=== PATIENT | male | born 1950 | race Caucasian/White ===

== ENCOUNTER 2024-07-19 17:16 | Observation (INO) ==
[2024-07-19] MEDS: SODIUM CHLORIDE 0.9% 1,000 ML IV ONE (17:35)
[2024-07-19 17:40] LABS: iSTAT Creatinine 3.1 mg/dl (0.6-1.3); iSTAT Hemoglobin 13.6 g/dl (14.0-18.0); iSTAT Ionized Calcium 1.2 mmol/l (1.12-1.32); iSTAT Potassium 4.1 mmol/L (3.3-5.0)
[2024-07-19 17:54] LABS: Basophils # (auto) 0.03 K/uL (0.00-0.20); Basophils % (auto) 0.6 %; Eosinophils # (auto) 0.05 K/uL (0.00-0.50); Eosinophils % (auto) 1.1 %; Hematocrit (blood only) 40.4 % (42.0-52.0); Hemoglobin 13.6 g/dl (14.0-18.0); Immature Granulocytes # (auto) 0.01 K/uL (0.01-0.20); Immature Granulocytes % (auto) 0.2 %; Lymphocytes # (auto) 1.29 K/uL (1.20-3.40); Lymphocytes % (auto) 27.1 %; Mean Corpuscular Hemoglobin 30.5 pg (25.0-34.0); Mean Corpuscular Hgb Conc 33.7 g/dL (32.0-36.0); Mean Corpuscular Volume 90.6 fL (80.0-100.0); Mean Platelet Volume 9.7 fL (9.4-12.4); Monocytes # (auto) 0.51 K/uL (0.11-0.59); Monocytes % (auto) 10.7 %; Neutrophils # (auto) 2.87 K/uL (1.40-6.50); Neutrophils % (auto) 60.3 %; Platelet Count 235 K/uL (130-400); Red Blood Count 4.46 M/uL (4.70-6.10); White Blood Count 4.76 K/ul (4.8-10.8)
[2024-07-19 18:07] LABS: Albumin Level 4.1 gm/dl (3.4-5.0); BUN Creatinine Ratio 24.9 (10-20); Bilirubin Direct 0.1 mg/dl (0-0.2); Bilirubin,Total 0.5 mg/dl (0.2-1.0); Calcium 9.2 mg/dl (8.6-10.3); Creatinine Clr Calc Pharmacy 20.5 ml/min; Est GFR (African American) 23.9 ml/min; Est GFR (Non-African American) 20.6 ml/min; Potassium 4.1 mmol/L (3.5-5.1); Total Protein 6.8 gm/dl (6.0-8.3)
--- NOTE | 2024-07-19 18:08 | XRay Report ---
SINGLE VIEW CHEST CLINICAL HISTORY: Syncope FINDINGS: 2 AP, portable, upright chest radiographs are obtained. No prior studies are available for comparison at the time of dictation. Cardiac pads are in place. The heart is enlarged noting atherosc lerotic calcification of the thoracic aorta. The pulmonary vasculature is noncongested. There is mild bibasilar scarring/atelectasis. The lungs and pleural spaces are otherwise clear. No pneumothorax is seen. The skeletal structures are osteopenic. The bony thorax is grossly intact. IMPRESSION: Cardiomegaly with no acute cardiopulmonary abnormality identified. ACT 112: Negative or not required by law. Electronically signed by: Steve Sanders M.D. 07/19/2024 6:06 PM
--- NOTE | 2024-07-19 18:13 | Emergency Department Note ---
Impression & Plan Chest pain, Syncope, Syncope, cardiogenic ED Provider Note NAME: LUCY COLIN AGE: 74 SEX: M : 1950 ARRIVES VIA: Ambulance INFORMANT: Patient, ED PROVIDER(S): Demetris Garza MD CHIEF COMPLAINT: Syncope HPI: This is a 74-year-old male presenting for syncope. Patient states that he was with his family when he was feeling dizzy. He notes he was shuffling [id number] and then felt he was in a pass out. He was caught before he actually hit the ground. He was unresponsive, pale and herbert/diaphoretic as per EMS. He did vomit twice prior to arrival. He was given 324 aspirin as per EMS. Given 4 mg of Zofran as well. Patient history of hypertension, type 2 diabetes and CKD, currently is a fistula but not receiving dialysis yet. He notes no current chest pain. No current lightheadedness sensation. No shortness of breath. Was never happened before. He was out in the heat all day. ROS: See above HPI for pertinent positives & negatives. A total of 10 systems reviewed and were otherwise negative. PAST MEDICAL HISTORY: See Below PAST SURGICAL HISTORY: See Below FAMILY HISTORY: See Below SOCIAL HISTORY: See Below HOME MEDICATIONS: See Below ALLERGIES: See Below VITALS: See Below PHYSICAL EXAMINATION: General: resting comfortably in no acute distress Head: Normocephalic and atraumatic Eyes: Normal inspection, extraocular muscles intact Ear, nose, throat: Normal external exam Neck: Normal range of motion Respiratory: lungs clear to auscultation bilaterally Cardiovascular: Regular rate/rhythm, no murmur GI: soft, nontender, no guarding or rebound Extremities: nontender, moves all extremities Neuro: The patient awake and alert, appropriately conversive, no focal deficits, symmetric faces Skin: Warm, dry, and intact MEDICAL DECISION MAKING: This is a 74-year-old male presenting for syncope. Patient's EKG is fairly concerning for ischemia. -ECG independently interpreted by me with sinus rhythm with first-degree AV block, rate of 75, normal IN, normal QRS, normal QTc, diffuse T wave inversions in the lateral leads, sub-1 mm elevations in the inferior leads, 2 3 and aVF, not consistent with STEMI criteria -Due to patient's syncope and now concerning EKG, discussed with interventional cardiology, Dr. Castañeda. He was sent a copy of this EKG. States it is borderline EKG and require admission. reassured by the fact there is no current chest pain. -Will place patient on pads due to his current syncope and concern EKG. -He is not hypoxic, tachycardic or tachypneic this time. Lower concern for PE. -Patient will require admission at this time for his EKG is concerning for ischemia, cardiogenic syncope syncope Differential diagnosis: Cardiac syncope, STEMI, dehydration, vasovagal syncope ER treatment provided: See below Independent History obtained from: Granddaughter Diagnostics interpreted by me: ECG: See above Cardiac Monitoring: An order was placed for continuous cardiac monitoring. The monitor shows a rate of 83 with sinus rhythm. Laboratory studies: As stated above and show below. Imaging studies: See below. Past Med/Surg History Problem List (Updated 07/19/24 @ 22:21 by Demetris Garza MD) Syncope, cardiogenic (Acute) Syncope (Acute) Chest pain (Acute) Social History Smoking Status: Former smoker Preferred Language: Ukrainian Feels Safe at Home: Yes Allergies Allergies Allergy/AdvReac Type Severity Reaction Status Date / Time No Known Allergies Allergy Unverified 07/19/24 19:36 Home Meds Home Medications Medication Instructions Recorded Confirmed amlodipine 5 mg tablet 5 mg PO DAILY 07/19/24 07/19/24 ascorbic acid (vitamin C) 500 mg 500 mg PO DAILY 07/19/24 07/19/24 tablet (Vitamin C) aspirin 81 mg tablet,delayed 81 mg PO DAILY 07/19/24 07/19/24 release carvedilol 3.125 mg tablet 3.125 mg PO BID 07/19/24 07/19/24 cholecalciferol (vitamin D3) 50 50 mcg PO DAILY 07/19/24 07/19/24 mcg (2,000 unit) capsule (Vitamin D3) empagliflozin 25 mg tablet 25 mg PO DAILY 07/19/24 07/19/24 (Jardiance) fenofibrate micronized 67 mg 67 mg PO DAILY 07/19/24 07/19/24 capsule finerenone 10 mg tablet (Kerendia) 10 mg PO DAILY 07/19/24 07/19/24 losartan 50 mg tablet 50 mg PO BID 07/19/24 07/19/24 magnesium oxide 400 mg (241.3 mg 400 mg PO DAILY 07/19/24 07/19/24 magnesium) tablet pentoxifylline 400 mg 400 mg PO BID 07/19/24 07/19/24 tablet,extended release pitavastatin calcium 1 mg tablet 1 mg PO DAILY 07/19/24 07/19/24 pitavastatin calcium 1 mg tablet 1 mg PO DAILY 07/19/24 07/19/24 (Livalo) semaglutide 1 mg/dose (4 mg/3 mL) 1 mg subcut WK 07/19/24 07/19/24 subcutaneous pen injector (Ozempic) Results & Data (ED) Vital Signs Vital Signs - 24 hr 07/19/24 17:03 07/19/24 17:43 07/19/24 17:48 Temperature 36.4 C L Temperature Source Temporal Artery Scan Pulse Rate - Lying Pulse Rate - Sitting Pulse Rate - Standing Pulse Rate 73 74 Pulse Rate [Left Apical] 74 Pulse Rate from SpO2 Sensor Respiratory Rate 14 19 Respiratory Effort / Characteristics Non-Labored Spontaneous Non-Labored Spontaneous Respiratory Depth Normal Normal Respiratory Pattern Regular Regular Blood Pressure - Lying Blood Pressure - Sitting Blood Pressure- Standing Blood Pressure 136/72 Blood Pressure [Left Arm] 120/66 Blood Pressure Mean 93 Blood Pressure Mean [Left Arm] 84 Pulse Oximetry 99 96 Oxygen Delivery Method Room Air Room Air Sepsis Recent Fever Within 48 Hours No Sepsis New/Unexplained Change in Mental Status N/A Sepsis Action Taken by Nursing No Action Required 07/19/24 17:54 07/19/24 17:56 07/19/24 18:00 Temperature Temperature Source Pulse Rate - Lying Pulse Rate - Sitting Pulse Rate - Standing Pulse Rate 75 Pulse Rate [Left Apical] Pulse Rate from SpO2 Sensor Respiratory Rate 16 Respiratory Effort / Characteristics Respiratory Depth Respiratory Pattern Blood Pressure - Lying Blood Pressure - Sitting Blood Pressure- Standing Blood Pressure 120/64 Blood Pressure [Left Arm] 122/70 Blood Pressure Mean 88 Blood Pressure Mean [Left Arm] 87 Pulse Oximetry 97 Oxygen Delivery Method Room Air Sepsis Recent Fever Within 48 Hours Sepsis New/Unexplained Change in Mental Status Sepsis Action Taken by Nursing 07/19/24 18:03 07/19/24 19:00 07/19/24 20:00 Temperature Temperature Source Pulse Rate - Lying Pulse Rate - Sitting Pulse Rate - Standing Pulse Rate 74 74 81 Pulse Rate [Left Apical] Pulse Rate from SpO2 Sensor 74 82 Respiratory Rate 23 17 18 Respiratory Effort / Characteristics Respiratory Depth Respiratory Pattern Blood Pressure - Lying Blood Pressure - Sitting Blood Pressure- Standing Blood Pressure 117/64 150/87 H Blood Pressure [Left Arm] Blood Pressure Mean 81 108 Blood Pressure Mean [Left Arm] Pulse Oximetry 97 95 99 Oxygen Delivery Method Room Air Room Air Room Air Sepsis Recent Fever Within 48 Hours Sepsis New/Unexplained Change in Mental Status Sepsis Action Taken by Nursing 07/19/24 20:30 07/19/24 20:36 07/19/24 21:24 Temperature Temperature Source Pulse Rate - Lying Pulse Rate - Sitting Pulse Rate - Standing Pulse Rate 83 83 Pulse Rate [Left Apical] Pulse Rate from SpO2 Sensor 83 Respiratory Rate 21 Respiratory Effort / Characteristics Respiratory Depth Respiratory Pattern Blood Pressure - Lying Blood Pressure - Sitting Blood Pressure- Standing Blood Pressure 152/91 H Blood Pressure [Left Arm] Blood Pressure Mean 104 Blood Pressure Mean [Left Arm] Pulse Oximetry 99 Oxygen Delivery Method Room Air Sepsis Recent Fever Within 48 Hours Sepsis New/Unexplained Change in Mental Status Sepsis Action Taken by Nursing 07/19/24 21:30 Temperature Temperature Source Pulse Rate - Lying 82 Pulse Rate - Sitting 88 Pulse Rate - Standing 92 H Pulse Rate Pulse Rate [Left Apical] Pulse Rate from SpO2 Sensor Respiratory Rate Respiratory Effort / Characteristics Respiratory Depth Respiratory Pattern Blood Pressure - Lying 147/84 H Blood Pressure - Sitting 140/84 Blood Pressure- Standing 138/87 Blood Pressure Blood Pressure [Left Arm] Blood Pressure Mean Blood Pressure Mean [Left Arm] Pulse Oximetry Oxygen Delivery Method Sepsis Recent Fever Within 48 Hours Sepsis New/Unexplained Change in Mental Status Sepsis Action Taken by Nursing Laboratory Data 07/19/24 17:22 07/19/24 17:22 Lab Results 07/19/24 07/19/24 Range/Units 17:22 17:27 WBC 4.76 L (4.8-10.8) K/ul RBC 4.46 L (4.70-6.10) M/uL Hgb 13.6 L (14.0-18.0) g/dl POC Hgb 13.6 L (14.0-18.0) g/dl Hct 40.4 L (42.0-52.0) % POC Hct 40 L (42-52) % MCV 90.6 (80.0-100.0) fL MCH 30.5 (25.0-34.0) pg MCHC 33.7 (32.0-36.0) g/dL RDW Std Deviation 43.0 (36.4-46.3) fL RDW Coeff of Salvatore 13.0 (11.5-14.5) % Plt Count 235 (130-400) K/uL MPV 9.7 (9.4-12.4) fL Immature Gran % (Auto) 0.2 % Neut % (Auto) 60.3 % Lymph % (Auto) 27.1 % [place] % (Auto) 10.7 % Eos % (Auto) 1.1 % Baso % (Auto) 0.6 % Reticulocyte % (Auto) 1.29 (0.50-2.00) % Neut # (Auto) 2.87 (1.40-6.50) K/uL Lymph # (Auto) 1.29 (1.20-3.40) K/uL [place] # (Auto) 0.51 (0.11-0.59) K/uL Eos # (Auto) 0.05 (0.00-0.50) K/uL Baso # (Auto) 0.03 (0.00-0.20) K/uL Reticulocyte # 0.060 (0.020-0.100) 10^6/uL Immature Gran # (Auto) 0.01 (0.01-0.20) K/uL POC Sodium 143 (135-144) mmol/L Sodium 140 (136-145) mmol/L POC Potassium 4.1 (3.3-5.0) mmol/L Potassium 4.1 (3.5-5.1) mmol/L POC Chloride 109 (101-112) mmol/L Chloride 109 H (98-107) mmol/L Carbon Dioxide 23 (21-32) mmol/L POC Total CO2 22 L (24-31) mmol/L Anion Gap 8 (3-11) POC Anion Gap 17.0 (16-25) mmol/L POC BUN 56 H (7-18) mg/dl BUN 72 H (6-23) mg/dl Creatinine 2.89 H (0.6-1.4) mg/dl POC Creatinine 3.1 H (0.6-1.3) mg/dl Est Cr Clr Drug Dosing 20.5 ml/min Est GFR ( Amer) 23.9 ml/min Est GFR (Non-Af Amer) 20.6 ml/min BUN/Creatinine Ratio 24.9 H (10-20) Glucose 134 H (70-99(Fasting)) mg/dl POC Glucose (other) 130 H (70-99) mg/dl Estimat Average Glucose 128 mg/dl Hemoglobin A1c 6.1 H (4.5-5.6) % Calcium 9.2 (8.6-10.3) mg/dl POC Ioniz Calcium [place] 1.20 (1.12-1.32) mmol/l Total Bilirubin 0.5 (0.2-1.0) mg/dl Direct Bilirubin 0.1 (0-0.2) mg/dl AST 15 (13-39) U/L ALT 12 (7-52) U/L Alkaline Phosphatase 23 L (34-104) U/L Total Creatine Kinase 66 (30-223) U/L Troponin I High Sens 10.9 (0-20) pg/ml Total Protein 6.8 (6.0-8.3) gm/dl Albumin 4.1 (3.4-5.0) gm/dl Lipase 54 (11-82) U/L TSH 2.984 (0.300-4.500) uIu/ml Administered Medications Lactated Ringer's (Lr) 1,000 mls @ 100 mls/hr IV .Q10H ONE Stop: 07/20/24 05:36 Last Admin: 07/19/24 20:48 Dose: 100 mls/hr Documented By: ORI Discontinued Medications Sodium Chloride (Nss) 1,000 mls @ 999 mls/hr IV .Q1H1M ONE Stop: 07/19/24 18:27 Last Infusion: 07/19/24 18:38 Dose: Infused Documented By: [facility] Admin: 07/19/24 17:35 Dose: 999 mls/hr Documented By: [facility] Imaging Data Radiologist's Impression: Chest X-Ray 07/19/24 17:52 SINGLE VIEW CHEST CLINICAL HISTORY: Syncope FINDINGS: 2 AP, portable, upright chest radiographs are obtained. No prior studies are available for comparison at the time of dictation. Cardiac pads are in place. The heart is enlarged noting atherosclerotic calcification of the thoracic aorta. The pulmonary vasculature is noncongested. There is mild bibasilar scarring/atelectasis. The lungs and pleural spaces are otherwise clear. No pneumothorax is seen. The skeletal structures are osteopenic. The bony thorax is grossly intact. IMPRESSION: Cardiomegaly with no acute cardiopulmonary abnormality identified. ACT 112: Negative or not required by law. Electronically signed by: Steve Sanders M.D. 07/19/2024 6:[address] 07/19/24 20:16 Exam(s): CT HEAD Without Contrast EXAM: CT Head Without Intravenous Contrast CLINICAL HISTORY: Reason for exam: head trauma. TECHNIQUE: Axial computed tomography images of the head/brain without intravenous contrast. CTDI is 37.58 mGy and DLP is 547.75 mGy-cm. Automated exposure control was utilized for the study. A dose lowering technique was utilized adhering to the principles of ALARA. COMPARISON: No relevant prior studies available. FINDINGS: Brain: No hemorrhage, extra-axial fluid collection, mass effect, or edema. Ventricles: Unremarkable. Bones/joints: Unremarkable. No fracture. Soft tissues: Posterior scalp contusion. Sinuses: No acute sinusitis. Mastoid air cells: Unremarkable as visualized. IMPRESSION: 1. No acute intracranial abnormality. Electronically signed by: Lauro Molina MD 07/19/24 20:56 PM Discharge Plan Visit Data Chief Complaint: Cardiac Assessment ED Provider: Demetris Garza Discharge Problem: Chest pain, Syncope, Syncope, cardiogenic Forms Stand Alone Forms: My [facility] [employer] Prescriptions Prescriptions: No Action amlodipine 5 mg tablet 5 mg PO DAILY aspirin [Aspir-81] 81 mg Tablet,Delayed Release (Dr/Ec) 81 mg PO DAILY pentoxifylline 400 mg tablet extended release 400 mg PO BID magnesium oxide 400 mg (241.3 mg magnesium) tablet 400 mg PO DAILY ascorbic acid (vitamin C) [Vitamin C] 500 mg Tablet 500 mg PO DAILY cholecalciferol (vitamin D3) [Vitamin D3] 50 mcg (2,000 unit) Capsule 50 mcg PO DAILY pitavastatin calcium 1 mg tablet 1 mg PO DAILY Jardiance 25 mg tablet 25 mg PO DAILY Ozempic 1 mg/dose (4 mg/3 mL) pen injector 1 mg SUBCUT WK Kerendia 10 mg tablet 10 mg PO DAILY losartan 50 mg Tablet 50 mg PO BID fenofibrate micronized 67 mg capsule 67 mg PO DAILY carvedilol 3.125 mg tablet 3.125 mg PO BID pitavastatin calcium [Livalo] 1 mg tablet 1 mg PO DAILY Referrals Referrals: Nichole Renner PA-C [Primary Care Provider] -
[2024-07-19 18:14] LABS: Troponin I High Sensitivity 10.9 pg/ml (0-20)
[2024-07-19 20:13] LABS: Thyroid Stimulating Hormone 2.984 uIu/ml (0.300-4.500)
[2024-07-19] MEDS: LACTATED RINGER'S 1,000 ML IV ONE (20:48)
--- NOTE | 2024-07-19 20:57 | CT Scan Report ---
Exam(s): CT HEAD Without Contrast EXAM: CT Head Without Intravenous Contrast CLINICAL HISTORY: Reason for exam: head trauma. TECHNIQUE: Axial computed tomography images of the head/brain without intravenous contrast. CTDI is 37.58 mGy and DLP is 547.75 mGy-cm. Automated exposure control was utilized for the study. A dose lowering technique was utilized adhering to the principles of ALARA. COMPARISON: No relevant prior studies available. FINDINGS: Brain: No hemorrhage, extra-axial fluid collection, mass effect, or edema. Ventricles: Unremarkable. Bones/joints: Unremarkable. No fracture. Soft tissues: Posterior scalp contusion. Sinuses: No acute sinusitis. Mastoid air cells: Unremarkable as visualized. IMPRESSION: 1. No acute intracranial abnormality. Electronically signed by: Lauro Molina MD 07/19/24 20:56 PM
--- NOTE | 2024-07-19 21:07 | History & Physical Report ---
Date of Service July 19, 2024 Assessment & Plan (1) Syncope: Plan: Possible orthostasis given borderline BP documented by EMS. hx abnormal EKG (ST elevation on EKG done at the ER) Patient and family aware of patient having abnormal EKGs in the past. Patient without chest pain or SOB complaints. Anemia, unknown duration, possibly from traumatic head/facial bruising, patient family unaware of previous issues history of CKD, history AV fistula creation 2 months ago, unknown baseline hyperlipidemia on statin Rx hx PVD DM2 on oral medications, hemoglobin A1c of 6.1 today past tobacco abuse OBS PCU given abnormal EKG TTE, Cardiology consult as per supervisory civil engineer (Dr. Castañeda) recommendations to ED for evaluation of abnormal EKG Baseline UA, monitor creatinine response to IVF, hold losartan for now until baseline established Anemia workup Hold antiplatelet Rx given bruising and anemia until baseline established. ISS BG goal 1 10-1 40, carb count coverage DVT prophylaxis. TEDS RE facial bruising/ecchymosis (SCDs contraindicated with history PAD) Full code Patient daughter requesting updates providers. Ms. Lynette Barton, contact #[phone]. Text document was generated using [employer] voice recognition software. It may contain grammatical or spelling errors. Kindly contact undersigned for clarification of any documentation item in question. History of Present Illness Chief Complaint: Passed out Primary Care Provider: Nichole Renner History obtained from patient, family, and records. Medical history significant for hypertension, hyperlipidemia, PVD, DM2 on oral medications, CRI (unknown baseline), abnormal EKG as per family, past tobacco abuse. Patient with 2 episodes of head trauma this month. Would bump his head from being inattentive as per patient. No chest pain, no SOB, no LOC. Patient started not feeling well after lunch at an outdoor picnic this afternoon. Patient attributed symptoms to outdoor heat and eating a lot for lunch. Patient did not look well as per family. Look like he was going to throw up as per family. Patient denies headache, chest pain, SOB, abdominal pain. Witnessed syncopal event lasting about 3 minutes as per family. No witnessed seizures. SBP 100s upon EMS arrival. Emesis in the ambulance en route to the hospital. Patient currently back to baseline as per family. Medical History as above Surgical History : Right eye trauma surgery, AV fistula creation Family History : Heart disease, DM Personal/Social history : Past tobacco abuse, occasional EtOH intake, retired mechanical engineering intern Allergies Allergy/AdvReac Type Severity Reaction Status Date / Time No Known Allergies Allergy Unverified 07/19/24 19:36 Home Medications Medication Instructions Recorded Confirmed Type amlodipine 5 mg tablet 5 mg PO DAILY 07/19/24 07/19/24 History ascorbic acid (vitamin C) 500 mg 500 mg PO DAILY 07/19/24 07/19/24 History tablet (Vitamin C) aspirin 81 mg tablet,delayed 81 mg PO DAILY 07/19/24 07/19/24 History release carvedilol 3.125 mg tablet 3.125 mg PO BID 07/19/24 07/19/24 History cholecalciferol (vitamin D3) 50 50 mcg PO DAILY 07/19/24 07/19/24 History mcg (2,000 unit) capsule (Vitamin D3) empagliflozin 25 mg tablet 25 mg PO DAILY 07/19/24 07/19/24 History (Jardiance) fenofibrate micronized 67 mg 67 mg PO DAILY 07/19/24 07/19/24 History capsule finerenone 10 mg tablet (Kerendia) 10 mg PO DAILY 07/19/24 07/19/24 History losartan 50 mg tablet 50 mg PO BID 07/19/24 07/19/24 History magnesium oxide 400 mg (241.3 mg 400 mg PO DAILY 07/19/24 07/19/24 History magnesium) tablet pentoxifylline 400 mg 400 mg PO BID 07/19/24 07/19/24 History tablet,extended release pitavastatin calcium 1 mg tablet 1 mg PO DAILY 07/19/24 07/19/24 History pitavastatin calcium 1 mg tablet 1 mg PO DAILY 07/19/24 07/19/24 History (Livalo) semaglutide 1 mg/dose (4 mg/3 mL) 1 mg subcut WK 07/19/24 07/19/24 History subcutaneous pen injector (Ozempic) Past Med/Surg History Problem List (Updated 07/19/24 @ 22:21 by Demetris Garza MD) Syncope, cardiogenic (Acute) Syncope (Acute) Chest pain (Acute) Social History Smoking Status: Former smoker Preferred Language: Divehi Feels Safe at Home: Yes Review of Systems Review of Systems: As per HPI, all other systems reviewed and negative Physical Exam Physical Exam: GENERAL: Comfortable, pleasant, no respiratory distress SKIN: Pallor, warm HEENT: Faint bruising over her cheeks and forehead, pale, palpebral conjunctivae, no ptosis, dry buccal mucosa NECK : Supple, no tenderness CHEST : CTA, no tenderness HEART : RRR, no obvious murmurs ABDOMEN: Some distention, nontender EXTREMITIES : No LE swelling/tenderness, no other conspicuous deformities noted NEUROLOGIC : Coherent, no facial asymmetry, no other gross focality Results & Data Results & Data Vital Signs (Past 12 Hours) Vital Signs Temp Pulse Pulse Resp BP BP Pulse Ox 07/19/24 19:00 74 17 117/64 95 07/19/24 18:03 74 23 97 07/19/24 18:00 120/64 07/19/24 17:56 122/70 07/19/24 17:54 75 16 97 07/19/24 17:48 74 07/19/24 17:43 74 19 120/66 96 07/19/24 17:03 36.4 C L 73 14 136/72 99 O2 Del Method 07/19/24 19:00 Room Air 07/19/24 18:03 Room Air 07/19/24 18:00 07/19/24 17:56 07/19/24 17:54 Room Air 07/19/24 17:48 07/19/24 17:43 Room Air 07/19/24 17:03 Room Air Laboratory Results Laboratory Results WBC 4.76 K/ul (4.8-10.8) L 07/19/24 17:22 RBC 4.46 M/uL (4.70-6.10) L 07/19/24 17:22 Hgb 13.6 g/dl (14.0-18.0) L 07/19/24 17:22 POC Hgb 13.6 g/dl (14.0-18.0) L 07/19/24 17:27 Hct 40.4 % (42.0-52.0) L 07/19/24 17:22 POC Hct 40 % (42-52) L 07/19/24 17:27 MCV 90.6 fL (80.0-100.0) 07/19/24 17:22 MCH 30.5 pg (25.0-34.0) 07/19/24 17:22 MCHC 33.7 g/dL (32.0-36.0) 07/19/24 17:22 RDW Std Deviation 43.0 fL (36.4-46.3) 07/19/24 17: RDW Coeff of Salvatore 13.0 % (11.5-14.5) 07/19/24 17:22 Plt Count 235 K/uL (130-400) 07/19/24 17:22 MPV 9.7 fL (9.4-12.4) 07/19/24 17:22 Immature Gran % (Auto) 0.2 % 07/19/24 17:22 Neut % (Auto) 60.3 % 07/19/24 17:22 Lymph % (Auto) 27.1 % 07/19/24 17:22 [place] % (Auto) 10.7 % 07/19/24 17:22 Eos % (Auto) 1.1 % 07/19/24 17:22 Baso % (Auto) 0.6 % 07/19/24 17:22 Neut # (Auto) 2.87 K/uL (1.40-6.50) 07/19/24 17:22 Lymph # (Auto) 1.29 K/uL (1.20-3.40) 07/19/24 17:22 Oldham # (Auto) 0.51 K/uL (0.11-0.59) 07/19/24 17:22 Eos # (Auto) 0.05 K/uL (0.00-0.50) 07/19/24 17:22 Baso # (Auto) 0.03 K/uL (0.00-0.20) 07/19/24 17:22 Immature Gran # (Auto) 0.01 K/uL (0.01-0.20) 07/19/24 17:22 POC Sodium 143 mmol/L (135-144) 07/19/24 17:27 Sodium 140 mmol/L (136-145) 07/19/24 17:22 POC Potassium 4.1 mmol/L (3.3-5.0) 07/19/24 17:27 Potassium 4.1 mmol/L (3.5-5.1) 07/19/24 17:22 POC Chloride 109 mmol/L (101-112) 07/19/24 17:27 Chloride 109 mmol/L (98-107) H 07/19/24 17:22 Carbon Dioxide 23 mmol/L (21-32) 07/19/24 17:22 POC Total CO2 22 mmol/L (24-31) L 07/19/24 17:27 Anion Gap 8 (3-11) 07/19/24 17:22 POC Anion Gap 17.0 mmol/L (16-25) 07/19/24 17:27 POC BUN 56 mg/dl (7-18) H 07/19/24 17:27 BUN 72 mg/dl (6-23) H 07/19/24 17:22 Creatinine 2.89 mg/dl (0.6-1.4) H 07/19/24 17:22 POC Creatinine 3.1 mg/dl (0.6-1.3) H 07/19/24 17:27 Est Cr Clr Drug Dosing 20.5 ml/min 07/19/24 17:22 Est GFR ( Amer) 23.9 ml/min 07/19/24 17:22 Est GFR (Non-Af Amer) 20.6 ml/min 07/19/24 17:22 BUN/Creatinine Ratio 24.9 (10-20) H 07/19/24 17:22 Glucose 134 mg/dl (70-99(Fasting)) H 07/19/24 17:22 POC Glucose (other) 130 mg/dl (70-99) H 07/19/24 17:27 Calcium 9.2 mg/dl (8.6-10.3) 07/19/24 17:22 POC Ioniz Calcium Tatum 1.20 mmol/l (1.12-1.32) 07/19/24 17:27 Total Bilirubin 0.5 mg/dl (0.2-1.0) 07/19/24 17:22 Direct Bilirubin 0.1 mg/dl (0-0.2) 07/19/24 17:22 AST 15 U/L (13-39) 07/19/24 17:22 ALT 12 U/L (7-52) 07/19/24 17:22 Alkaline Phosphatase 23 U/L (34-104) L 07/19/24 17:22 Total Creatine Kinase 66 U/L (30-223) 07/19/24 17:22 Troponin I High Sens 10.9 pg/ml (0-20) 07/19/24 17:22 Total Protein 6.8 gm/dl (6.0-8.3) 07/19/24 17:22 Albumin 4.1 gm/dl (3.4-5.0) 07/19/24 17:22 Lipase 54 U/L (11-82) 07/19/24 17:22 TSH 2.984 uIu/ml (0.300-4.500) 07/19/24 17:22 Impressions Chest X-Ray 07/19/24 17:52 SINGLE VIEW CHEST CLINICAL HISTORY: Syncope FINDINGS: 2 AP, portable, upright chest radiographs are obtained. No prior studies are available for comparison at the time of dictation. Cardiac pads are in place. The heart is enlarged noting atherosclerotic calcification of the thoracic aorta. The pulmonary vasculature is noncongested. There is mild bibasilar scarring/atelectasis. The lungs and pleural spaces are otherwise clear. No pneumothorax is seen. The skeletal structures are osteopenic. The bony thorax is grossly intact. IMPRESSION: Cardiomegaly with no acute cardiopulmonary abnormality identified. ACT 112: Negative or not required by law. Electronically signed by: Steve Sanders M.D. 07/19/2024 6:[address] 07/19/24 20:16 Exam(s): CT HEAD Without Contrast EXAM: CT Head Without Intravenous Contrast CLINICAL HISTORY: Reason for exam: head trauma. TECHNIQUE: Axial computed tomography images of the head/brain without intravenous contrast. CTDI is 37.58 mGy and DLP is 547.75 mGy-cm. Automated exposure control was utilized for the study. A dose lowering technique was utilized adhering to the principles of ALARA. COMPARISON: No relevant prior studies available. FINDINGS: Brain: No hemorrhage, extra-axial fluid collection, mass effect, or edema. Ventricles: Unremarkable. Bones/joints: Unremarkable. No fracture. Soft tissues: Posterior scalp contusion. Sinuses: No acute sinusitis. Mastoid air cells: Unremarkable as visualized. IMPRESSION: 1. No acute intracranial abnormality. Electronically signed by: Lauro Molina MD 07/19/24 20:56 PM Diagnostic Findings EKG as per my interpretation : Rate 75, NSR, normal axis, 1 AVB, subtle ST elevation inferior leads, deep T wave inversions anterolateral leads
[2024-07-19] MEDS ORDERED: ACETAMINOPHEN 325 MG TAB PO PRN (21:10)
[2024-07-19] MEDS ORDERED: PROMETHAZINE 6.25 MG/50.25 ML BAG IV PRN (21:12)
[2024-07-19 21:44] LABS: Estimated Average Glucose 128 mg/dl; Hemoglobin A1C 6.1 % (4.5-5.6)
[2024-07-19 21:58] LABS: Reticulocyte % 1.29 % (0.50-2.00); Reticulocytes # 0.06 10^6/uL (0.020-0.100)
[2024-07-19 22:34] LABS: Folate (Folic Acid),Ser orPlas 10.2 ng/ml (>5.38)
[2024-07-19] MEDS: carvediloL 3.125 MG TAB PO STA (22:43)
[2024-07-19 23:22] LABS: Calcium 9.3 mg/dl (8.6-10.3); Creatinine Clr Calc Pharmacy 21.6 ml/min; Est GFR (African American) 25.4 ml/min; Est GFR (Non-African American) 21.9 ml/min; Potassium 4.4 mmol/L (3.5-5.1)
[2024-07-19] MEDS ORDERED: GLUCOSE 40% GEL 15 GM TUBE PO PRN (23:22)
[2024-07-19] MEDS ORDERED: DEXTROSE 50% 50 ML SYRINGE IV PRN (23:22)
[2024-07-19] MEDS ORDERED: GLUCAGON FOR INJ 1 MG VIAL SQ PRN (23:22)
[2024-07-19] MEDS ORDERED: GLUCOSE 10 TAB/TUBE PO PRN (23:22)
[2024-07-19] MEDS ORDERED: CARBOHYDRATES FOR HYPOGLYCEMIA PO PRN (23:22)
[2024-07-19 23:43] LABS: Ferritin 84.5 ng/ml (8-388)
[2024-07-20] MEDS: INSULIN ASPART PER UNIT CHARGE SC SCH (00:40)
[2024-07-20 02:01] LABS: Appearance Urine Clear (Clear); Bilirubin Urine Negative (Negative); Blood Urine Negative (Negative); Color Urine Yellow; Glucose Urine UA 3+ (Negative); Ketones Urine Negative (Negative); Leukocyte Esterase Urine Negative (Negative); Nitrite Urine Negative (Negative); Protein Urine Negative (Negative); Specific Gravity Urine 1.019 (1.000-1.030); Urobilinogen Urine Negative (Negative); pH Urine 5.5 (4.5-7.5)
[2024-07-20 04:54] LABS: Basophils # (auto) 0.02 K/uL (0.00-0.20); Basophils % (auto) 0.3 %; Eosinophils # (auto) 0.03 K/uL (0.00-0.50); Eosinophils % (auto) 0.5 %; Hemoglobin 12.6 g/dl (14.0-18.0); Immature Granulocytes # (auto) 0.01 K/uL (0.01-0.20); Immature Granulocytes % (auto) 0.2 %; Lymphocytes % (auto) 22.1 %; Mean Corpuscular Hemoglobin 30.4 pg (25.0-34.0); Mean Corpuscular Hgb Conc 33.2 g/dL (32.0-36.0); Mean Corpuscular Volume 91.8 fL (80.0-100.0); Mean Platelet Volume 9.5 fL (9.4-12.4); Monocytes # (auto) 0.57 K/uL (0.11-0.59); Monocytes % (auto) 9.7 %; Neutrophils # (auto) 3.94 K/uL (1.40-6.50); Neutrophils % (auto) 67.2 %; Platelet Count 221 K/uL (130-400); RDW Coefficient of Variation 13.1 % (11.5-14.5); RDW Standard Deviation 44.2 fL (36.4-46.3); Red Blood Count 4.14 M/uL (4.70-6.10); White Blood Count 5.87 K/ul (4.8-10.8)
[2024-07-20 05:06] LABS: BUN Creatinine Ratio 22.7 (10-20); Calcium 8.4 mg/dl (8.6-10.3); Creatinine Clr Calc Pharmacy 22.5 ml/min; Est GFR (African American) 26.6 ml/min; Potassium 3.9 mmol/L (3.5-5.1)
--- NOTE | 2024-07-20 08:56 | Cardiology Consultation ---
Date of Consultation July 20, 2024 Assessment & Plan (1) Syncope: (2) Abnormal EKG: Plan Assessment: 74 year old male presents with one time syncopal episode. No prior cardiac history. EKG with significant abnormality with no prior study for review. Plan: Syncope: -Possible vasovagal syncope in the setting of dehydration and known CKD. No post-ictal symptoms and no reports of any chest pain, pressure or palpitations. -patient remains asymptomatic and endorses living a active life, does a lot of manual labor. -Troponin negative x2 -EKG abnormal with ST elevation in inferior leads, not stemi criteria. -BP high end of target, known CKD. Continue current medication dosing of amlodipine 5mg PO QD and Coreg 3.125mg PO BID -Continue to monitor on telemetry for any arrhythmia or ectopy -NPO after midnight with plans to proceed with Stress echocardiogram in the AM. Case has been discussed with Dr. Slulivan. Further recommendations regarding plan of care as per his assessment. I spent a total of 40 minutes on the date of service in preparation, delivery, documentation of the care provided to the patient excluding any time spent in the performance of separately billed services. TALAT Patton [facility] Cardiology [facility] Supervising Physician Co-Signing Physician Notes I have personally performed a history and physical examination on the patient. I have reviewed the advance practitioner's documentation, and I agree with, and take responsibility for the plan of care. 74-year-old male admitted with syncopal episode, possibly vasovagal, related to excessive heat exposure and volume depletion. ECG with changes concerning for underlying ischemic heart disease. No prior ECG for comparison. No dysrhythmias on telemetry. Resting echocardiogram with normal LV function and wall motion. High-sensitivity troponin unremarkable. Findings discussed with patient and family members. Recommend exercise stress echo for further evaluation of abnormal ECG. Patient agreeable. Stress testing will be performed in the a.m. 07/21/2024. Continue telemetry monitoring while hospitalized. I spent a total of 35 minutes on the date of service in preparation, delivery, and documentation of the care provided to this patient, excluding any time spent in the performance of separately billed services. Reno Sullivan DO, [facility] History of Present Illness Reason for Consultation: Syncope, Abnormal EKG Requesting Physician: [facility] hospitalist Attending Physician: Dina Noble MD History of Present Illness HPI: Patient is a 74 year old male with PMHx significant for hypertension, hyperlipidemia, PVD, DM2 on oral medications, CRI (unknown baseline), abnormal EKG as per family, past tobacco abuse. He presented to the ED after a witnessed syncopal episodes that occurred yesterday while attending a picnic. Patient states that he was feeling his usual state of health, but after eating became dizzy, lightheaded, appeared pale, and felt as though he might vomit. He was noted to begin to shuffle his gait and proceeded to synopsize; however, was caught by a family member prior to hitting the ground. Sustained to trauma. Family had reported that the event lasted approximately 3 minutes. He had no post-ictal confusion, and there was no witnessed seizure activity. EMS reported low systolic BP of 100mmHg upon arrival and patient did vomit in the ambulance. Patient denied any chest pain, pressure, palpitations, shortness of breath, PND, or edema. Of note, patient had mentioned to ED staff that he has "bumped his head" a few times this past month, no prior LOC. Initial EKG and repeat (15 minutes later)demonstrate concerns for ST elevation HI due to segment elevation in inferior leads. SR with 1st degree AV block. Rate 74bpm. Dr. Castañeda [facility] [place]. EKG not meeting stemi criteria, patient has been without chest pain for entire course. Recommended admission for evaluation/work up. H/H stable. BUN/CR 60/2.65 (was 2.87 on admission) Unknown baseline. Troponin negative x1. Chest xray IMPRESSION: Cardiomegaly with no acute cardiopulmonary abnormality identified. Head CT: IMPRESSION: 1. No acute intracranial abnormality. Patient is feeling well overall. Resting comfortably in bed with daughter at bedside. Patient offers no cardiac complaints. Denies chest pain, pressure, palpitations, shortness of breath, PND, pre-syncope, syncope or edema at time of visit. He states "I really think I was just overheated" Denies any prior cardiac history, and no prior cardiac workup. When speaking to family, we had inquired about knowledge of "prior abnormal EKGs". Daughter explains that several months ago patient had gone in for an OP Right arm AV fistula placement in the event that he needed to started HD. She states the procedure was held up for a few hours due to a "abnormal EKG", but no one would elaborate. She states no other testing took place that day and patient moved forward with the procedure. He was never recommended to follow up with cardiology outpatient. This occurred at [facility]. No prior OP records for review. Allergies Allergy/AdvReac Type Severity Reaction Status Date / Time No Known Allergies Allergy Unverified 07/19/24 19:36 Home Medications Medication Instructions Recorded Confirmed Type amlodipine 5 mg tablet 5 mg PO DAILY 07/19/24 07/19/24 History ascorbic acid (vitamin C) 500 mg 500 mg PO DAILY 07/19/24 07/19/24 History tablet (Vitamin C) aspirin 81 mg tablet,delayed 81 mg PO DAILY 07/19/24 07/19/24 History release carvedilol 3.125 mg tablet 3.125 mg PO BID 07/19/24 07/19/24 History cholecalciferol (vitamin D3) 50 50 mcg PO DAILY 07/19/24 07/19/24 History mcg (2,000 unit) capsule (Vitamin D3) empagliflozin 25 mg tablet 25 mg PO DAILY 07/19/24 07/19/24 History (Jardiance) fenofibrate micronized 67 mg 67 mg PO DAILY 07/19/24 07/19/24 History capsule finerenone 10 mg tablet (Kerendia) 10 mg PO DAILY 07/19/24 07/19/24 History losartan 50 mg tablet 50 mg PO BID 07/19/24 07/19/24 History magnesium oxide 400 mg (241.3 mg 400 mg PO DAILY 07/19/24 07/19/24 History magnesium) tablet pentoxifylline 400 mg 400 mg PO BID 07/19/24 07/19/24 History tablet,extended release pitavastatin calcium 1 mg tablet 1 mg PO DAILY 07/19/24 07/19/24 History pitavastatin calcium 1 mg tablet 1 mg PO DAILY 07/19/24 07/19/24 History (Livalo) semaglutide 1 mg/dose (4 mg/3 mL) 1 mg subcut WK 07/19/24 07/19/24 History subcutaneous pen injector (Ozempic) Patient History Social History Smoking Status: Never smoker Hx Alcohol Use: No Hx Substance Use: No Preferred Language: Syriac Communication Ability: Effective County Attorney Required: No Beliefs That Will Affect Care: None Current Living Situation: Alone Other Information That Helps Us Care for You: No Feels Safe at Home: Yes Safety Concerns: Feels Safe At This Time Review of Systems Review of Systems: All systems reviewed & are unremarkable except as noted in HPI & below Physical Exam Constitutional: well developed and well nourished; no acute distress and not ill appearing Neck: normal visual inspection and trachea midline Respiratory: normal respiratory effort, lungs clear to auscultation Cardiovascular: Rate/Rhythm: regular rate and regular rhythm Heart Sounds: normal S1 and normal S2; no murmur Vessels: dorsalis pedis pulses present; no JVD Extremities: no edema Skin: no rashes, warm and dry Psychiatric: A+Ox3, euthymic affect Results & Data Vital Signs (Past 12 Hours) Vital Signs Temp Pulse Pulse Resp BP BP Pulse Ox 07/20/24 07:46 36.7 C 81 20 135/75 92 07/20/24 07:36 81 7 L 92 07/20/24 07:30 135/77 07/20/24 07:24 84 07/20/24 07:21 83 13 89 L 07/20/24 07:03 81 12 96 07/20/24 07:00 120/67 07/20/24 07:00 120/67 07/20/24 07:00 120/67 07/20/24 06:57 82 11 L 95 07/20/24 06:54 80 12 94 07/20/24 06:48 83 11 L 95 07/20/24 06:30 116/63 07/20/24 06:30 84 13 96 07/20/24 06:24 82 11 L 94 07/20/24 06:12 81 14 93 07/20/24 06:03 83 10 L 95 07/20/24 06:00 112/66 07/20/24 06:00 112/66 07/20/24 06:00 112/66 07/20/24 05:48 82 14 94 07/20/24 05:42 82 12 94 07/20/24 05:30 116/66 07/20/24 05:30 116/66 07/20/24 05:30 83 12 94 07/20/24 05:00 118/64 07/20/24 05:00 83 16 97 07/20/24 04:54 83 11 L 98 07/20/24 04:48 87 14 96 07/20/24 04:30 113/59 L 07/20/24 04:30 113/59 L 07/20/24 04:30 113/59 L 07/20/24 04:30 84 11 L 95 07/20/24 04:26 83 12 119/57 L 95 07/20/24 04:21 83 14 96 07/20/24 04:12 83 13 95 07/20/24 04:00 119/57 L 07/20/24 04:00 119/57 L 07/20/24 04:00 119/57 L 07/20/24 03:57 83 13 95 07/20/24 03:33 83 12 95 07/20/24 03:30 110/62 07/20/24 03:30 110/62 07/20/24 03:18 83 12 95 07/20/24 03:15 83 12 94 07/20/24 03:00 111/61 07/20/24 03:00 111/61 07/20/24 03:00 85 12 94 07/20/24 02:54 85 12 90 07/20/24 02:36 83 12 94 07/20/24 02:30 111/59 L 07/20/24 02:15 83 12 95 07/20/24 02:09 83 12 97 07/19/24 23:48 07/19/24 23:48 36.9 C 88 20 134/77 97 07/19/24 22:42 85 14 142/76 H 95 07/19/24 22:00 142/76 H 07/19/24 21:57 82 13 98 07/19/24 21:24 83 Pulse Ox O2 Del Method O2 Del Method 07/20/24 07:46 Room Air 07/20/24 07:36 07/20/24 07:30 07/20/24 07:24 07/20/24 07:21 07/20/24 07:03 07/20/24 07:00 07/20/24 07:00 07/20/24 07:00 07/20/24 06:57 07/20/24 06:54 07/20/24 06:48 07/20/24 06:30 07/20/24 06:30 07/20/24 06:24 07/20/24 06:12 07/20/24 06:03 07/20/24 06:00 07/20/24 06:00 07/20/24 06:00 07/20/24 05:48 07/20/24 05:42 07/20/24 05:30 07/20/24 05:30 07/20/24 05:30 07/20/24 05:00 07/20/24 05:00 07/20/24 04:54 07/20/24 04:48 07/20/24 04:30 07/20/24 04:30 07/20/24 04:30 07/20/24 04:30 07/20/24 04:26 Room Air 07/20/24 04:21 07/20/24 04:12 07/20/24 04:00 07/20/24 04:00 07/20/24 04:00 07/20/24 03:57 07/20/24 03:33 07/20/24 03:30 07/20/24 03:30 07/20/24 03:18 07/20/24 03:15 07/20/24 03:00 07/20/24 03:00 07/20/24 03:00 07/20/24 02:54 07/20/24 02:36 07/20/24 02:30 07/20/24 02:15 07/20/24 02:09 07/19/24 23:48 97 Room Air 07/19/24 23:48 Room Air 07/19/24 22:42 Room Air 07/19/24 22:00 07/19/24 21:57 Room Air 07/19/24 21:24 Laboratory Results Cardiac Enzymes 07/19/24 07/20/24 Range/Units 17:22 09:45 AST 15 (13-39) U/L Troponin I High Sens 10.9 14.7 (0-20) pg/ml CBC 07/19/24 07/20/24 Range/Units 17:22 04:17 WBC 4.76 L 5.87 (4.8-10.8) K/ul RBC 4.46 L 4.14 L (4.70-6.10) M/uL Hgb 13.6 L 12.6 L (14.0-18.0) g/dl Hct 40.4 L 38.0 L (42.0-52.0) % Plt Count 235 221 (130-400) K/uL Neut # (Auto) 2.87 3.94 (1.40-6.50) K/uL Lymph # (Auto) 1.29 1.30 (1.20-3.40) K/uL Brown # (Auto) 0.51 0.57 (0.11-0.59) K/uL Eos # (Auto) 0.05 0.03 (0.00-0.50) K/uL Baso # (Auto) 0.03 0.02 (0.00-0.20) K/uL Comprehensive Metabolic Panel 07/19/24 07/19/24 07/20/24 Range/Units 17:22 22:50 04:17 Sodium 140 139 141 (136-145) mmol/L Potassium 4.1 4.4 3.9 (3.5-5.1) mmol/L Chloride 109 H 109 H 111 H (98-107) mmol/L Carbon Dioxide 23 23 24 (21-32) mmol/L BUN 72 H 66 H 60 H (6-23) mg/dl Creatinine 2.89 H 2.75 H 2.64 H (0.6-1.4) mg/dl Glucose 134 H 117 H 151 H (70-99(Fasting)) mg/dl Calcium 9.2 9.3 8.4 L (8.6-10.3) mg/dl Direct Bilirubin 0.1 (0-0.2) mg/dl AST 15 (13-39) U/L ALT 12 (7-52) U/L Alkaline Phosphatase 23 L (34-104) U/L Total Protein 6.8 (6.0-8.3) gm/dl Albumin 4.1 (3.4-5.0) gm/dl Intake and Output 07/19/24 07/20/24 07/20/24 22:59 06:59 14:59 Intake Total 1000 / 1000 1000 / 1000 Balance 1000 / 1000 1000 / 1000 Intake: IV 1000 / 1000 1000 / 1000 Lactated Ringer's 1,000 ml @ 1000 / 1000 100 mls/hr IV .Q10H ONE Rx#: [id number] Sodium Chloride 0.9% 1,000 ml @ 1000 / 1000 999 mls/hr IV .Q1H1M ONE Rx#: [id number] Other: Weight 74.5 kg 74.5 kg Weight Measurement Method Built in [facility] Built in [facility] (1) Syncope Syncope type: vasovagal syncope Qualified Code(s): R55 - Syncope and collapse
--- NOTE | 2024-07-20 09:26 | Hospitalist Progress Note ---
Date of Service July 20, 2024 Assessment & Plan (1) Syncope, cardiogenic: Plan pt is a 74yoM with PMHx significant for hypertension, hyperlipidemia, PVD, DM2 on oral medications, CKD (unknown baseline), abnormal EKG as per family, past tobacco abuse presenting after a syncopal episode Syncope Pt with syncopal episode prior to arrival EKG with ST elevation Trop wnl x 2, repeat pending Echo pending Carotid doppler pending EEG pending UA unremarkable anemia panel with normal iron, folate and b12 levels Possible orthostasis given borderline BP documented by EMS. Orthostat vitals normal hx abnormal EKG (ST elevation on EKG done at the ER) Patient and family aware of patient having abnormal EKGs in the past. Patient without chest pain or SOB complaints. Cardiology consult as per fresh meat grader (Dr. Castañeda) recommendations to ED for evaluation of abnormal EKG Hold antiplatelet Rx given bruising and anemia until baseline established. Continue to monitor on telemetry Anemia unknown duration possibly from traumatic head/facial bruising patient family unaware of previous issues anemia panel with normal iron, folate and b12 levels history of CKD history AV fistula creation 2 months ago unknown baseline hyperlipidemia on statin Rx hx PVD Stable DM2 on oral medications hemoglobin A1c of 6.1 today ISS BG goal 1 10-1 40, carb count coverage Diet: HH/DMII DVT prophylaxis: TEDS RE facial bruising/ecchymosis (SCDs contraindicated with history PAD) Dispo: PT/OT for further recs once medically stable Admission and Anticipated Discharge Date Admission Date: July 19, 2024 Subjective Pt was seen with daughter at bedside. States he feels great. No recurrent syncope symptoms. Denied chest pain or SOB. Review of Systems Review of Systems: All systems reviewed & are unremarkable except as noted in Subjective Physical Exam Physical Exam: General: Alert, oriented. No acute distress Skin: No noted rashes or bruises Psych: Appropriate mood and affect Neuro: No gross deficits HEENT: NC/AT CV: RRR, Normal s1, s2. No murmurs appreciated Resp: Breath sounds clear bilaterally, no increased effort of breathing. Abdomen: Soft, nontender, nondistended. Extremities: No edema in lower extremities bilaterally. Results & Data Results & Data Vital Signs (Past 12 Hours) Vital Signs Temp Pulse Pulse Resp BP BP Pulse Ox 07/20/24 09:04 36.5 C 82 20 149/79 H 97 07/20/24 07:46 36.7 C 81 20 135/75 92 07/20/24 07:36 81 7 L 92 07/20/24 07:30 135/77 07/20/24 07:24 84 07/20/24 07:21 83 13 89 L 07/20/24 07:03 81 12 96 07/20/24 07:00 120/67 07/20/24 07:00 120/67 07/20/24 07:00 120/67 07/20/24 06:57 82 11 L 95 07/20/24 06:54 80 12 94 07/20/24 06:48 83 11 L 95 07/20/24 06:30 116/63 07/20/24 06:30 84 13 96 07/20/24 06:24 82 11 L 94 07/20/24 06:12 81 14 93 07/20/24 06:03 83 10 L 95 07/20/24 06:00 112/66 07/20/24 06:00 112/66 07/20/24 06:00 112/66 07/20/24 05:48 82 14 94 07/20/24 05:42 82 12 94 07/20/24 05:30 116/66 07/20/24 05:30 116/66 07/20/24 05:30 83 12 94 07/20/24 05:00 118/64 07/20/24 05:00 83 16 97 07/20/24 04:54 83 11 L 98 07/20/24 04:48 87 14 96 07/20/24 04:30 113/59 L 07/20/24 04:30 113/59 L 07/20/24 04:30 113/59 L 07/20/24 04:30 84 11 L 95 07/20/24 04:26 83 12 119/57 L 95 07/20/24 04:21 83 14 96 07/20/24 04:12 83 13 95 07/20/24 04:00 119/57 L 07/20/24 04:00 119/57 L 07/20/24 04:00 119/57 L 07/20/24 03:57 83 13 95 07/20/24 03:33 83 12 95 07/20/24 03:30 110/62 07/20/24 03:30 110/62 07/20/24 03:18 83 12 95 07/20/24 03:15 83 12 94 07/20/24 03:00 111/61 07/20/24 03:00 111/61 07/20/24 03:00 85 12 94 07/20/24 02:54 85 12 90 07/20/24 02:36 83 12 94 07/20/24 02:30 111/59 L 07/20/24 02:15 83 12 95 07/20/24 02:09 83 12 97 07/19/24 23:48 07/19/24 23:48 36.9 C 88 20 134/77 97 07/19/24 22:42 85 14 142/76 H 95 07/19/24 22:00 142/76 H 07/19/24 21:57 82 13 98 Pulse Ox O2 Del Method O2 Del Method 07/20/24 09:04 Room Air 07/20/24 07:46 Room Air 07/20/24 07:36 07/20/24 07:30 07/20/24 07:24 07/20/24 07:21 07/20/24 07:03 07/20/24 07:00 07/20/24 07:00 07/20/24 07:00 07/20/24 06:57 07/20/24 06:54 07/20/24 06:48 07/20/24 06:30 07/20/24 06:30 07/20/24 06:24 07/20/24 06:12 07/20/24 06:03 07/20/24 06:00 07/20/24 06:00 07/20/24 06:00 07/20/24 05:48 07/20/24 05:42 07/20/24 05:30 07/20/24 05:30 07/20/24 05:30 07/20/24 05:00 07/20/24 05:00 07/20/24 04:54 07/20/24 04:48 07/20/24 04:30 07/20/24 04:30 07/20/24 04:30 07/20/24 04:30 07/20/24 04:26 Room Air 07/20/24 04:21 07/20/24 04:12 07/20/24 04:00 07/20/24 04:00 07/20/24 04:00 07/20/24 03:57 07/20/24 03:33 07/20/24 03:30 07/20/24 03:30 07/20/24 03:18 07/20/24 03:15 07/20/24 03:00 07/20/24 03:00 07/20/24 03:00 07/20/24 02:54 07/20/24 02:36 07/20/24 02:30 07/20/24 02:15 07/20/24 02:09 07/19/24 23:48 97 Room Air 07/19/24 23:48 Room Air 07/19/24 22:42 Room Air 07/19/24 22:00 07/19/24 21:57 Room Air Diagnostic Findings Chest X-Ray 07/19/24 17:52 SINGLE VIEW CHEST CLINICAL HISTORY: Syncope FINDINGS: 2 AP, portable, upright chest radiographs are obtained. No prior studies are available for comparison at the time of dictation. Cardiac pads are in place. The heart is enlarged noting atherosclerotic calcification of the thoracic aorta. The pulmonary vasculature is noncongested. There is mild bibasilar scarring/atelectasis. The lungs and pleural spaces are otherwise clear. No pneumothorax is seen. The skeletal structures are osteopenic. The bony thorax is grossly intact. IMPRESSION: Cardiomegaly with no acute cardiopulmonary abnormality identified. ACT 112: Negative or not required by law. Electronically signed by: Steve Sanders M.D. 07/19/2024 6:[address] 07/19/24 20:16 Exam(s): CT HEAD Without Contrast EXAM: CT Head Without Intravenous Contrast CLINICAL HISTORY: Reason for exam: head trauma. TECHNIQUE: Axial computed tomography images of the head/brain without intravenous contrast. CTDI is 37.58 mGy and DLP is 547.75 mGy-cm. Automated exposure control was utilized for the study. A dose lowering technique was utilized adhering to the principles of ALARA. COMPARISON: No relevant prior studies available. FINDINGS: Brain: No hemorrhage, extra-axial fluid collection, mass effect, or edema. Ventricles: Unremarkable. Bones/joints: Unremarkable. No fracture. Soft tissues: Posterior scalp contusion. Sinuses: No acute sinusitis. Mastoid air cells: Unremarkable as visualized. IMPRESSION: 1. No acute intracranial abnormality. Electronically signed by: Lauro Molina MD 07/19/24 20:56 PM
[2024-07-20] MEDS: carvediloL 3.125 MG TAB PO SCH (09:36)
[2024-07-20] MEDS: amLODIPine BESYLATE 5 MG TAB PO SCH (09:36)
--- NOTE | 2024-07-20 10:46 | Ultrasound Report ---
BILATERAL CAROTID DOPPLER STUDY HISTORY: syncope COMPARISON: None. TECHNIQUE: Real-time, grayscale, and color Doppler sonography of the carotid arteries was performed. Imaging reviewed in the transverse and longitudinal planes. All measurements were calculated based on NASCET criteria. FINDINGS: Antegrade flow is seen in the bilateral vertebral arteries. Mild calcified plaque within the bilateral carotid bifurcations.. The peak systolic velocity within the right ICA is 53 cm/s. The right systolic ratio is 0.65. The peak systolic velocity within the left ICA is 82 cm/s. The left systolic ratio is 0.62. IMPRESSION: No hemodynamically significant stenosis seen within the carotid arteries. ACT 112: Negative or not required by law. Electronically signed by: Da Erickson M.D. 07/20/2024 10:44 AM
[2024-07-21 06:40] VITALS: O2SAT 94
[2024-07-21] MEDS: FENOFIBRATE 67 MG PO SCH (08:24)
[2024-07-21] MEDS: PITAVASTATIN 1 MG PO SCH (08:25)
[2024-07-21 08:36] LABS: Hematocrit (blood only) 42.1 % (42.0-52.0); Hemoglobin 13.7 g/dl (14.0-18.0); Mean Corpuscular Hemoglobin 29.9 pg (25.0-34.0); Mean Corpuscular Hgb Conc 32.5 g/dL (32.0-36.0); Mean Corpuscular Volume 91.9 fL (80.0-100.0); Mean Platelet Volume 9.6 fL (9.4-12.4); Platelet Count 203 K/uL (130-400); RDW Coefficient of Variation 13.2 % (11.5-14.5); Red Blood Count 4.58 M/uL (4.70-6.10); White Blood Count 6.15 K/ul (4.8-10.8)
[2024-07-21 08:54] LABS: BUN Creatinine Ratio 19.8 (10-20); Calcium 8.6 mg/dl (8.6-10.3); Creatinine Clr Calc Pharmacy 25.6 ml/min; Est GFR (African American) 31.1 ml/min; Est GFR (Non-African American) 26.9 ml/min; Magnesium 2.1 mg/dl (1.7-2.4); Phosphorus 2.5 mg/dl (2.5-4.9); Potassium 4.2 mmol/L (3.5-5.1)
--- NOTE | 2024-07-21 10:28 | Cardiology Progress Note ---
Date of Service July 21, 2024 Assessment & Plan (1) Syncope: Plan: * Likely vasovagal or due to dehydration. Workup negative. * Resume antihypertensives including carvedilol and losartan at discharge. * Hold Jardiance until follows up with PCP (2) Abnormal EKG: Plan: * Abnormal EKG with T wave inversions in the inter precordial leads on presentation as well as the high lateral leads. * Serial high-sensitivity troponins negative * No symptoms suggestive angina * Stress echocardiogram performed today negative for ischemia. The heart rate response was attenuated to beta-porfirio therapy, but the patient achieved a high enough workload to allow for a diagnostic test. * No further evaluation for ischemic heart disease felt to be indicated at present (3) Chronic renal disease, stage IV: Plan: * The patient describes a past history of chronic kidney disease and states that he follows with Dr. Montanez of nephrology in [place]. * He has a right upper extremity AV fistula. * Laboratory studies this hospital stay consistent with stage for chronic kidney disease. * Follow-up with previous outpatient providers. Disposition: Patient stable for discharge from a cardiac perspective. Admission and Anticipated Discharge Date Admission Date: July 19, 2024 Subjective The patient was seen in cardiology consultation prior to, during, and after exercise stress echocardiogram today. Patient felt well overnight. No chest discomfort, no shortness of breath, no recurrence of lightheadedness or dizziness. Telemetry revealed sinus rhythm. Review of Systems Review of Systems: All systems reviewed & are unremarkable except as noted in HPI & below Physical Exam Constitutional: well developed and well nourished; no acute distress and not ill appearing Eyes: Mild ecchymosis over the left orbit from his fall with mild bruising Neck: normal visual inspection and trachea midline Respiratory: normal respiratory effort, lungs clear to auscultation Cardiovascular: Rate/Rhythm: regular rate and regular rhythm Heart Sounds: normal S1 and normal S2; no murmur Vessels: dorsalis pedis pulses present; no JVD Extremities: no edema Skin: no rashes, warm and dry Psychiatric: A+Ox3, euthymic affect Results & Data Vital Signs (Past 12 Hours) Vital Signs Temp Pulse Pulse Resp BP Pulse Ox O2 Del Method 07/21/24 07:26 79 07/21/24 06:39 36.7 C 66 16 160/83 H 94 Room Air 07/21/24 03:29 36.7 C 87 18 131/75 95 Room Air 07/20/24 23:07 37.1 C 71 16 161/85 H 95 Room Air Diagnostic Findings STRESS STUDY: Normal exercise stress echocardiogram. No echocardiographic or EKG evidence of myocardial ischemia having achieved heart rate adequate for diagnostic purposes. The resting heart rate of 79 bpm brian to a maximum heart rate of 114 bpm. This value represents 77% of the maximal age-predicted heart rate. The heart rate response to exercise was attenuated due to underlying beta-porfirio therapy. The resting blood pressure of 156/90 brian to maximum blood pressure of 169/70.The blood pressure response to exercise was normal. The stress test was terminated due to fatigue. No symptoms suggestive of angina were induced. A high workload was achieved,7.7 METS on a Archie protocol. (1) Syncope Syncope type: vasovagal syncope Qualified Code(s): R55 - Syncope and collapse
[2024-07-21 11:34] VITALS: BP 156/81; PULSE 80; RESP 18; TEMP 97.9
--- NOTE | 2024-07-21 15:28 | Discharge Summary ---
Discharge Summary Date of Service July 21, 2024 Principal Dx & Hospital Course #1 = Principal Diagnosis (1) Syncope, cardiogenic: Plan pt is a 74yoM with PMHx significant for hypertension, hyperlipidemia, PVD, DM2 on oral medications, CKD (unknown baseline), abnormal EKG as per family, past tobacco abuse presenting after a syncopal episode Syncope Abnormal EKG Pt with syncopal episode prior to arrival EKG with ST elevation Trop wnl x3 wnl Carotid doppler unremarkable bilaterally EEG read pending at time of discharge. PCP follow up UA unremarkable anemia panel with normal iron, folate and b12 levels Possible orthostasis given borderline BP documented by EMS. Orthostat vitals normal hx abnormal EKG (ST elevation on EKG done at the ER) Patient and family aware of patient having abnormal EKGs in the past. Patient without chest pain or SOB complaints. Cardiology consulted, recommended stress echo. -Pt with unremarkable stress echo on 07/21 -Per Cardiology on day of discharge: "(1) Syncope: Likely vasovagal or due to dehydration. Workup negative. Resume antihypertensives including carvedilol and losartan at discharge. Hold Jardiance until follows up with PCP (2) Abnormal EKG: Abnormal EKG with T wave inversions in the inter precordial leads on presentation as well as the high lateral leads. Serial high- sensitivity troponins negative. No symptoms suggestive angina Stress echocardiogram performed today negative for ischemia. The heart rate response was attenuated to beta-porfirio therapy, but the patient achieved a high enough workload to allow for a diagnostic test. No further evaluation for ischemic heart disease felt to be indicated at present" Resume home antiplatelet Rx PCP and Cardiology followup after discharge Anemia unknown duration possibly from traumatic head/facial bruising patient family unaware of previous issues anemia panel with normal iron, folate and b12 levels PCP followup history of CKD history AV fistula creation 2 months ago unknown baseline Please ensure Nephrology followup hyperlipidemia on statin Rx hx PVD Stable Continue home meds DM2 on oral medications hemoglobin A1c of 6.1 today ISS BG goal 1 10-1 40, carb count coverage PCP follow up Notes For Next Care Provider please ensure close Cardiology follow up EEG read pending at time of discharge- please follow up on this Medication Changes From Visit Per cardiology: Hold jardiance until pcp f/u Admission HPI Per Admitting Provider History obtained from patient, family, and records. Medical history significant for hypertension, hyperlipidemia, PVD, DM2 on oral medications, CRI (unknown baseline), abnormal EKG as per family, past tobacco abuse. Patient with 2 episodes of head trauma this month. Would bump his head from being inattentive as per patient. No chest pain, no SOB, no LOC. Patient started not feeling well after lunch at an outdoor picnic this afternoon. Patient attributed symptoms to outdoor heat and eating a lot for lunch. Patient did not look well as per family. Look like he was going to throw up as per family. Patient denies headache, chest pain, SOB, abdominal pain. Witnessed syncopal event lasting about 3 minutes as per family. No witnessed seizures. SBP 100s upon EMS arrival. Emesis in the ambulance en route to the hospital. Patient currently back to baseline as per family. Medical History as above Surgical History : Right eye trauma surgery, AV fistula creation Family History : Heart disease, DM Personal/Social history : Past tobacco abuse, occasional EtOH intake, retired telephone mechanic Admission Exam Per Admitting Provider GENERAL: Comfortable, pleasant, no respiratory distress SKIN: Pallor, warm HEENT: Faint bruising over her cheeks and forehead, pale, palpebral conjunctivae, no ptosis, dry buccal mucosa NECK : Supple, no tenderness CHEST : CTA, no tenderness HEART : RRR, no obvious murmurs ABDOMEN: Some distention, nontender EXTREMITIES : No LE swelling/tenderness, no other conspicuous deformities noted NEUROLOGIC : Coherent, no facial asymmetry, no other gross focality Discharge Exam General: Alert, oriented. No acute distress Skin: No noted rashes or bruises Psych: Appropriate mood and affect Neuro: No gross deficits HEENT: NC/AT CV: RRR Resp: Breath sounds clear bilaterally, no increased effort of breathing. Abdomen: Soft, nontender, nondistended. Extremities: No edema in lower extremities bilaterally. Updated Medication List Medication Instructions Recorded Confirmed Type amlodipine 5 mg tablet 5 mg PO DAILY 07/19/24 07/19/24 History ascorbic acid (vitamin C) 500 mg 500 mg PO DAILY 07/19/24 07/19/24 History tablet (Vitamin C) aspirin 81 mg tablet,delayed 81 mg PO DAILY 07/19/24 07/19/24 History release carvedilol 3.125 mg tablet 3.125 mg PO BID 07/19/24 07/19/24 History cholecalciferol (vitamin D3) 50 50 mcg PO DAILY 07/19/24 07/19/24 History mcg (2,000 unit) capsule (Vitamin D3) empagliflozin 25 mg tablet 25 mg PO DAILY 07/19/24 07/19/24 History (Jardiance) fenofibrate micronized 67 mg 67 mg PO DAILY 07/19/24 07/19/24 History capsule finerenone 10 mg tablet (Kerendia) 10 mg PO DAILY 07/19/24 07/19/24 History losartan 50 mg tablet 50 mg PO BID 07/19/24 07/19/24 History magnesium oxide 400 mg (241.3 mg 400 mg PO DAILY 07/19/24 07/19/24 History magnesium) tablet pentoxifylline 400 mg 400 mg PO BID 07/19/24 07/19/24 History tablet,extended release pitavastatin calcium 1 mg tablet 1 mg PO DAILY 07/19/24 07/19/24 History pitavastatin calcium 1 mg tablet 1 mg PO DAILY 07/19/24 07/19/24 History (Livalo) semaglutide 1 mg/dose (4 mg/3 mL) 1 mg subcut WK 07/19/24 07/19/24 History subcutaneous pen injector (Ozempic) Hospital Stay Data Consultations 07/19/24 19:30 ED Decision to Admit Stat 07/19/24 23:22 Consult Cardiology Routine Diagnostic Imagining Performed 07/19/24 20:16 CT head/brain wo con Stat 07/20/24 09:32 US carotid doppler BI Urgent Chest X-Ray 07/19/24 17:52 SINGLE VIEW CHEST CLINICAL HISTORY: Syncope FINDINGS: 2 AP, portable, upright chest radiographs are obtained. No prior studies are available for comparison at the time of dictation. Cardiac pads are in place. The heart is enlarged noting atherosclerotic calcification of the thoracic aorta. The pulmonary vasculature is noncongested. There is mild bibasilar scarring/atelectasis. The lungs and pleural spaces are otherwise clear. No pneumothorax is seen. The skeletal structures are osteopenic. The bony thorax is grossly intact. IMPRESSION: Cardiomegaly with no acute cardiopulmonary abnormality identified. ACT 112: Negative or not required by law. Electronically signed by: Steve Sanders M.D. 07/19/2024 6:[address] 07/19/24 20:16 Exam(s): CT HEAD Without Contrast EXAM: CT Head Without Intravenous Contrast CLINICAL HISTORY: Reason for exam: head trauma. TECHNIQUE: Axial computed tomography images of the head/brain without intravenous contrast. CTDI is 37.58 mGy and DLP is 547.75 mGy-cm. Automated exposure control was utilized for the study. A dose lowering technique was utilized adhering to the principles of ALARA. COMPARISON: No relevant prior studies available. FINDINGS: Brain: No hemorrhage, extra-axial fluid collection, mass effect, or edema. Ventricles: Unremarkable. Bones/joints: Unremarkable. No fracture. Soft tissues: Posterior scalp contusion. Sinuses: No acute sinusitis. Mastoid air cells: Unremarkable as visualized. IMPRESSION: 1. No acute intracranial abnormality. Electronically signed by: Lauro Molina MD 07/19/24 20:56 PM Carotid Doppler Study 07/20/24 09:32 BILATERAL CAROTID DOPPLER STUDY HISTORY: syncope COMPARISON: None. TECHNIQUE: Real-time, grayscale, and color Doppler sonography of the carotid arteries was performed. Imaging reviewed in the transverse and longitudinal planes. All measurements were calculated based on NASCET criteria. FINDINGS: Antegrade flow is seen in the bilateral vertebral arteries. Mild calcified plaque within the bilateral carotid bifurcations.. The peak systolic velocity within the right ICA is 53 cm/s. The right systolic ratio is 0.65. The peak systolic velocity within the left ICA is 82 cm/s. The left systolic ratio is 0.62. IMPRESSION: No hemodynamically significant stenosis seen within the carotid arteries. ACT 112: Negative or not required by law. Electronically signed by: Da Erickson M.D. 07/20/2024 10:44 AM Pending Results Patient Have Any Pending Studies at Discharge: Yes (EEG) Discharge Instructions Given to Patient (Per Discharging Provider) Mr. Ordoñez, You were seen by the pie filling mixer and there is no determined cause for you passing out. The EEG while completed has not yet been read by Neurology at the time of discharge but your primary care provider will follow up on those results for you. Cardiology recommends continuing with your home medications EXCEPT Jardiance. They recommend you hold that until you follow up with your primary care provider. Please keep close followup with Cardiology and Nephrology after discharge. Please also keep close follow up with your primary care provider after discharge. Please do not hesitate to come back to the emergency room if your symptoms worsen or return. It was a pleasure taking care of you while you were here. Total Time Total Time Spent Total Time Spent (In Minutes): 65
--- NOTE | 2024-07-22 14:12 | Electroencephalogram ---
EEG Procedure Note Date of Service July 21, 2024 Start / End Times Start Time: 10:53 End Time: 11:[address] Dina Zapata History A 74-year-old male with syncope. EEG performed for evaluation of epileptiform activity. Home Medication List Medication Instructions Recorded Confirmed Type amlodipine 5 mg tablet 5 mg PO DAILY 07/19/24 07/19/24 History ascorbic acid (vitamin C) 500 mg 500 mg PO DAILY 07/19/24 07/19/24 History tablet (Vitamin C) aspirin 81 mg tablet,delayed 81 mg PO DAILY 07/19/24 07/19/24 History release carvedilol 3.125 mg tablet 3.125 mg PO BID 07/19/24 07/19/24 History cholecalciferol (vitamin D3) 50 50 mcg PO DAILY 07/19/24 07/19/24 History mcg (2,000 unit) capsule (Vitamin D3) empagliflozin 25 mg tablet 25 mg PO DAILY 07/19/24 07/19/24 History (Jardiance) fenofibrate micronized 67 mg 67 mg PO DAILY 07/19/24 07/19/24 History capsule finerenone 10 mg tablet (Kerendia) 10 mg PO DAILY 07/19/24 07/19/24 History losartan 50 mg tablet 50 mg PO BID 07/19/24 07/19/24 History magnesium oxide 400 mg (241.3 mg 400 mg PO DAILY 07/19/24 07/19/24 History magnesium) tablet pentoxifylline 400 mg 400 mg PO BID 07/19/24 07/19/24 History tablet,extended release pitavastatin calcium 1 mg tablet 1 mg PO DAILY 07/19/24 07/19/24 History pitavastatin calcium 1 mg tablet 1 mg PO DAILY 07/19/24 07/19/24 History (Livalo) semaglutide 1 mg/dose (4 mg/3 mL) 1 mg subcut WK 07/19/24 07/19/24 History subcutaneous pen injector (Ozempic) Inpatient Medication List Discontinued Medications Amlodipine Besylate (Amlodipine Besylate 5 Mg Tab) 5 mg PO DAILY ANITRA Stop: 08/19/24 08:59 Last Admin: 07/21/24 08:24 Dose: 5 mg Documented By: Admin: 07/20/24 09:36 Dose: 5 mg Documented By: DAMIEN Carvedilol (Carvedilol 3.125 Mg Tab) 3.125 mg PO BID ANITRA Stop: 08/19/24 08:59 Last Admin: 07/21/24 08:24 Dose: 3.125 mg Documented By: Admin: 07/20/24 20:32 Dose: 3.125 mg Documented By: Admin: 07/20/24 09:36 Dose: 3.125 mg Documented By: DAMIEN Carvedilol (Carvedilol 3.125 Mg Tab) 3.125 mg PO ONE STA Stop: 07/19/24 22:03 Last Admin: 07/19/24 22:43 Dose: 3.125 mg Documented By: ORI Fenofibrate (Pt Own Med-Fenofibrate 67mg Capsule) 1 each PO DAILY ANITRA Stop: 08/20/24 08:59 Last Admin: 07/21/24 08:24 Dose: 1 each Documented By: DAMIEN Sodium Chloride (Nss) 1,000 mls @ 999 mls/hr IV .Q1H1M ONE Stop: 07/19/24 18:27 Last Infusion: 07/19/24 18:38 Dose: Infused Documented By: Admin: 07/19/24 17:35 Dose: 999 mls/hr Documented By: BROOK Lactated Ringer's (Lr) 1,000 mls @ 100 mls/hr IV .Q10H ONE Stop: 07/20/24 05:36 Last Infusion: 07/20/24 09:40 Dose: Infused Documented By: Admin: 07/19/24 20:48 Dose: 100 mls/hr Documented By: ORI Insulin Aspart (Insulin Aspart Per Unit Charge) 0 units SC ACHS ANITRA Stop: 08/18/24 23:21 Last Admin: 07/21/24 11:58 Dose: 2 units Documented By: DAMIEN Co-signed By: SANGITA Admin: 07/21/24 08:02 Dose: Not Given Documented By: Admin: 07/20/24 20:32 Dose: Not Given Documented By: Admin: 07/20/24 17:37 Dose: Not Given Documented By: Admin: 07/20/24 12:19 Dose: 3 units Documented By: DAMIEN Co-signed By: EP Admin: 07/20/24 09:35 Dose: 4 units Documented By: DAMIEN Co-signed By: EP Admin: 07/20/24 00:40 Dose: 2 units Documented By: ROGER Co-signed By: CHECO Miscellaneous (Fenofibrate~Order Awaiting Action) 1 each N/A QS ANITRA Stop: 08/19/24 07:59 Last Admin: 07/20/24 17:10 Dose: Not Given Documented By: Admin: 07/20/24 10:13 Dose: Not Given Documented By: DAMIEN Miscellaneous (Pitavastatin~Order Awaiting Action) 1 each N/A QS ANITRA Stop: 08/19/24 07:59 Last Admin: 07/20/24 17:10 Dose: Not Given Documented By: Admin: 07/20/24 10:13 Dose: Not Given Documented By: DAMIEN Pitavastatin (Pt's Own Med-Pitavastatin 1mg Tab) 1 each PO DAILY ANITRA Stop: 08/20/24 08:59 Last Admin: 07/21/24 08:25 Dose: 1 each Documented By: DMAIEN Description This is a 21 electrode EEG with a single channel dedicated to limited EKG. The electrodes were placed in accordance with the International 10-20 system. REPORT: At the onset of the EEG the patient is awake. The background is symmetric and well organized. There is a normal anterior to posterior gradient. The posterior dominant rhythm is 10-11 hertz. Anteriorly there is low amplitude faster frequencies. Photic stimulation does not induce any abnormalities. No stage 2 sleep transients are seen. Interpretation Impression: This is a normal awake and drowsy routine EEG. There is no evidence of focal slowing or epileptiform activity.
--- NOTE | 2024-07-23 15:43 | Electrocardiogram Report ---
Test Reason : Blood Pressure : */* mmHG Vent. Rate : 75 BPM Atrial Rate : 75 BPM P-R Int : 262 ms QRS Dur : 90 ms QT Int : 412 ms P-R-T Axes : 63 10 101 degrees QTcB Int : 460 ms Sinus rhythm with 1st degree A-V block ST elevation consider inferior injury or acute infarct ACUTE [place] / STEMI Consider right ventricular involvement in acute inferior infarct Abnormal ECG When compared with ECG of 19-Jul-2024 17:19, (unconfirmed) No significant change was found Confirmed by Phyllis Skaggs (Keith) on 07/20/2024 6:52:50 PM Referred By: REFERRED SELF Confirmed By: Phyllis Skaggs
--- NOTE | 2024-07-23 15:43 | Electrocardiogram Report ---
Test Reason : Blood Pressure : */* mmHG Vent. Rate : 85 BPM Atrial Rate : 85 BPM P-R Int : 264 ms QRS Dur : 90 ms QT Int : 372 ms P-R-T Axes : 62 -4 109 degrees QTcB Int : 442 ms Sinus rhythm with 1st degree A-V block Abnormal ECG When compared with ECG of 19-Jul-2024 17:35, (unconfirmed) T wave inversion no longer evident in Anterior leads Inferior ST elevation has resolved Confirmed by Phyllis Skaggs (Keith) on 07/20/2024 7:16:29 PM Referred By: REFERRED SELF Confirmed By: Phyllis Skaggs
--- NOTE | 2024-07-23 15:43 | Electrocardiogram Report ---
Test Reason : Blood Pressure : */* mmHG Vent. Rate : 74 BPM Atrial Rate : 74 BPM P-R Int : 258 ms QRS Dur : 94 ms QT Int : 424 ms P-R-T Axes : 54 4 107 degrees QTcB Int : 470 ms Sinus rhythm with 1st degree A-V block ST elevation consider inferior injury or acute infarct ACUTE [place] / STEMI Consider right ventricular involvement in acute inferior infarct Abnormal ECG No previous ECGs available Confirmed by Phyllis Skaggs ([id number]) on 07/20/2024 6:51:02 PM Referred By: REFERRED SELF Confirmed By: Phyllis Skaggs
== END 2024-07-21 16:38 | disposition home or self-care (01) ==
LOC: ED 17:16 → EDINP 17:16 → 2S 07-20 07:46